=== PATIENT | female | born 1980 | race Caucasian/White ===

== ENCOUNTER 2016-07-13 10:39 | Observation (INO) | payer OTHER ==
[2016-07-13 12:07] VITALS: RESP 20
[2016-07-13 16:40] VITALS: TEMP 98.4
[2016-07-13 23:39] VITALS: BP 113/54; PULSE 78
== END 2016-07-13 14:55 | disposition home or self-care (01) | DRG 782 ==
LOC: OB 11:06
PROVIDERS: ADMIT Family Medicine; ATTEND Family Medicine
DX: O32.1XX0 Maternal care for breech presentation, not applicable or unspecified (principal)
CPT/HCPCS: 59025; 80053; 81001; 85025

== ENCOUNTER 2016-07-13 15:04 | Inpatient (IN) | payer OTHER ==
[2016-07-13 13:49] LABS: APPEARANCE,URINE Clear; BILIRUBIN,URINE NEGATIVE (NEGATIVE); COLOR,URINE Dark yellow; GLUCOSE, URINE (UA) TRACE (NEGATIVE); KETONES,URINE TRACE (NEGATIVE); LEUKOCYTE ESTERASE ,URINE NEGATIVE (NEGATIVE); NITRATE,URINE NEGATIVE (NEGATIVE); OCCULT BLOOD,URINE 1+ (NEG-TRACE); UROBILINOGEN,URINE 0.2 (0.2-1.0 EU)
[2016-07-13 14:01] LABS: RBC,URINE 0-1 (0-3AV/HPF); WBC,URINE 0-1 (0-5AV/HPF)
[2016-07-13 15:13] LABS: BASOPHILS % (AUTO) 1 % (0-3); EOSINOPHILS % (AUTO) 1 % (0-9); HEMATOCRIT 34 % (35-47); MEAN CORPUSCULAR HGB CONC 35.1 gm/dl (32.0-36.0); MEAN CORPUSCULAR VOLUME 87 fL (81-99); NEUTROPHILS % (AUTO) 73.7 % (37-80)
[2016-07-13 15:48] LABS: ALBUMIN 2.4 gm/dl (3.4-5.0); CALCIUM 9.2 mg/dl (8.5-10.1); POTASSIUM 4.1 mMol/L (3.5-5.1)
[2016-07-13] MEDS ORDERED: CITRIC ACID/SODIUM CITRATE SOL PO ONE (17:37)
[2016-07-13] MEDS ORDERED: SODIUM CHLORIDE 0.9% 50 ML 25 ML IV PRN (17:37)
[2016-07-13] MEDS ORDERED: ONDANSETRON HCL 4 MG/2 ML SOL ONE (17:42)
[2016-07-13] MEDS ORDERED: OXYTOCIN 10000 MU/ML SOL ONE (17:42)
[2016-07-13] MEDS ORDERED: CEFAZOLIN SODIUM 1 GM PDS ONE (17:42)
[2016-07-13] MEDS ORDERED: MORPHINE SULFATE 0.5 MG/ML SOL ONE (17:43)
[2016-07-13] MEDS ORDERED: FENTANYL 100MCG/2ML SOL ONE (17:43)
[2016-07-13] MEDS ORDERED: CEFAZOLIN (PREMIX) 1 GM 1 GM/50 ML SOL IV SCH (17:45)
[2016-07-13] MEDS: LACTATED RINGERS 1,000 ML IV SCH ×3 (17:45→22:32)
[2016-07-13] MEDS ORDERED: [UNRECOGNIZED DRUG - OTHER] IV ONE (18:25)
[2016-07-13 18:30] LABS: ABO A; ANTIBODY SCREEN Negative; RH TYPE Positive
[2016-07-13] MEDS ORDERED: BISACODYL 10 MG SUP PR PRN (19:30)
[2016-07-13] MEDS ORDERED: TEMAZEPAM 15MG 15 MG CAP PO PRN (19:30)
[2016-07-13] MEDS ORDERED: DIPHENHYDRAMINE 25 MG CAP PO PRN (19:30)
[2016-07-13] MEDS ORDERED: ONDANSETRON HCL 4 MG/2 ML SOL IV PRN (19:30)
[2016-07-13] MEDS ORDERED: FLEET ENEMA PR PRN (19:30)
[2016-07-13] MEDS ORDERED: METHYLERGONOVINE MALEATE 0.2 MG TAB PO PRN (19:30)
[2016-07-13] MEDS ORDERED: WITCH HAZEL 1 EA PAD TOP PRN (19:30)
[2016-07-13] MEDS ORDERED: BENZOCAINE/MENTHOL 1 SPR TOP PRN (19:30)
[2016-07-13] MEDS: DOCUSATE SODIUM 100 MG SGL PO SCH (22:31)
[2016-07-14] MEDS ORDERED: CEFAZOLIN (PREMIX) 1 GM 1 GM/50 ML SOL IV SCH
[2016-07-14] MEDS ORDERED: CEFAZOLIN (PREMIX) 1 GM 1 GM/50 ML SOL IV ONE (00:06)
[2016-07-14] MEDS: KETOROLAC TROMETHAMINE 30 MG/ML SOL IV PRN ×2 (00:09→07:04)
[2016-07-14] MEDS: LACTATED RINGERS 1,000 ML IV SCH (07:08)
[2016-07-14] MEDS: DOCUSATE SODIUM 100 MG SGL PO SCH ×2 (09:41→21:09)
[2016-07-14] MEDS: FOLIC ACID 1 MG TAB PO SCH (09:43)
[2016-07-14] MEDS: MULTIVITAMIN2 1 EA TAB PO SCH (09:44)
[2016-07-14] MEDS ORDERED: LACTATED RINGERS 1,000 ML IV SCH (13:15)
[2016-07-14] MEDS: SODIUM CHLORIDE 0.9% FLUSH 10 ML SOL IV SCH ×2 (14:18→21:18)
[2016-07-14] MEDS: IBUPROFEN 600 MG TAB PO PRN ×2 (16:14→21:20)
[2016-07-15] MEDS: IBUPROFEN 600 MG TAB PO PRN ×2 (06:23→14:44)
[2016-07-15] MEDS: SODIUM CHLORIDE 0.9% FLUSH 10 ML SOL IV SCH ×2 (06:24→16:52)
[2016-07-15] MEDS: MULTIVITAMIN2 1 EA TAB PO SCH (09:11)
[2016-07-15] MEDS: FOLIC ACID 1 MG TAB PO SCH (09:11)
[2016-07-15] MEDS: DOCUSATE SODIUM 100 MG SGL PO SCH (09:16)
[2016-07-15] MEDS ORDERED: APAP/OXYCODONE 325/5 TAB ONE ×2 (17:22→21:48)
[2016-07-15] MEDS: APAP/OXYCODONE 325/5 TAB PO PRN ×2 (17:24→21:52)
[2016-07-16] MEDS: IBUPROFEN 600 MG TAB PO PRN ×2 (06:28→14:40)
[2016-07-16 06:31] VITALS: TEMP 97.5; O2SAT 95
[2016-07-16] MEDS: FOLIC ACID 1 MG TAB PO SCH (09:41)
[2016-07-16] MEDS: MULTIVITAMIN2 1 EA TAB PO SCH (09:42)
[2016-07-16 11:44] VITALS: BP 109/70; PULSE 80; RESP 16
== END 2016-07-16 17:05 | disposition home or self-care (01) | DRG 766 ==
LOC: OB 16:42 → OBSVTOIN 16:42 → OB 18:51
PROVIDERS: ADMIT Family Medicine; ATTEND Family Medicine
PROC: 10D00Z1 Extraction of Products of Conception, Low, Open Approach (ICD-10-PCS; principal; 2016-07-13 18:20)
DX: O32.1XX0 Maternal care for breech presentation, not applicable or unspecified (principal); Z37.0 Single live birth; Z3A.37 37 weeks gestation of pregnancy
CPT/HCPCS: 36415; 59025; 80053; 81001; 85018; 85025; 86850; 86900; 86901; 99070; J0690; J1885; J2274; J2405; J2590; J3010